=== PATIENT | female | born 1965 | race Caucasian/White ===

== ENCOUNTER 2019-01-24 10:36 | Emergency (ER) | payer OTHER ==
[~2019-01-24] VITALS: Ht 154.9 cm; Wt 99.8 kg
[~2019-01-24 10:36] MED LIST: ALBU90OI INH; AMOX500 PO; BECLOI16.8 IH; BISA5EC PO; CLIN300 PO; CLON.2 PO; Flonase 0.05% N16 GM; HYDACE5 PO; IBUP800 PO; LACT10SY PO; MAGCIT300 PO; NAPR500 PO; OXYACE10; OXYACE5T PO; OXYC15ER PO; OXYC20ER PO; PENVK500 PO; PROM25 PO; SPACE CHAMBER1 EACH MC; Sudogest30 MG PO; TRAM50 PO; TRAZ50; VITAMENS; Zithromax250 MG PO
[2019-01-24] MEDS ORDERED: Amoxicillin500 MG PO (11:05)
== END 2019-01-24 11:18 | disposition home or self-care (01) ==
LOC: ER 10:36
DX: K04.7 Periapical abscess without sinus (principal); Z88.8 Allergy status to other drugs, medicaments and biological substances; Z88.5 Allergy status to narcotic agent; F17.210 Nicotine dependence, cigarettes, uncomplicated
CPT/HCPCS: 99282

== ENCOUNTER 2021-08-14 23:22 | Emergency (ER) | payer OTHER ==
[~2021-08-14] VITALS: Ht 157.5 cm; Wt 84.8 kg
[~2021-08-14 23:22] MED LIST changes: +Amoxicillin500 MG PO
[2021-08-14] MEDS ORDERED: ONDA4ODT SL (23:39)
[2021-08-15 00:50] LABS: BASOPHILS ABSOLUTE AUTO 0.02 K/mm3 (0.00-0.23); BASOPHILS PERCENT AUTO 0 % (0-2); EOSINOPHILS ABSOLUTE AUTO 0.12 K/mm3 (0.00-0.68); EOSINOPHILS PERCENT AUTO 2 % (0-6); Hematocrit 52.9 % (33.0-51.0); Hemoglobin 17.9 g/dL (11.5-16.0); IMMATURE GRAN ABSOLUTE AUTO 0.02 K/mm3 (0.00-0.10); IMMATURE GRAN PERCENT AUTO 0 % (0-1); LYMPHOCYTES ABSOLUTE AUTO 1.23 K/mm3 (0.84-5.20); LYMPHOCYTES PERCENT AUTO 22 % (21-46); MONOCYTES ABSOLUTE AUTO 0.65 K/mm3 (0.16-1.47); MONOCYTES PERCENT AUTO 11 % (4-13); Mean Corpuscular HGB 28.1 pg (26.0-34.0); Mean Corpuscular HGB Conc 33.8 g/dL (31.5-36.5); Mean Corpuscular Volume 83 fL (80-100); Mean Platelet Volume 10.9 fL (9.1-12.4); NEUTROPHILS ABSOLUTE AUTO 3.65 K/mm3 (1.96-9.15); NEUTROPHILS PERCENT AUTO 64 % (41-73); Platelet Count 144 K/mm3 (150-400); RDW Standard Deviation 39.9 fL (35.1-46.3); Red Blood Cell Count 6.36 M/mm3 (3.80-5.20); White Blood Cell Count 5.69 K/mm3 (4.00-11.30)
[2021-08-15 01:39] LABS: Alanine Aminotransfer (ALT/SGP 79 U/L (12-78); Albumin, Blood 3.4 g/dL (3.4-5.0); Albumin/Globulin Ratio 0.9 (0.8-1.8); Alk Phos 101 U/L (50-136); Anion Gap 8 mmol/L (6-16); Aspartate Aminotrans (AST/SGOT 42 U/L (12-37); Bilirubin, Total 0.6 mg/dL (0.1-1.0); Blood Urea Nitrogen 16 mg/dL (8-24); Bun/Creatinine Ratio 18.8 (12.0-20.0); CO2, Blood 28 mmol/L (21-32); Calcium, Blood 9.3 mg/dL (8.5-10.1); Chloride, Blood 100 mmol/L (98-108); Creatinine, Blood 0.85 mg/dL (0.40-1.00); Globulin, Blood 3.9 g/dL (2.2-4.0); Glomerular Filtration Rate >60 (60-); Glucose, Blood 106 mg/dL (70-99); Potassium, Blood 3.8 mmol/L (3.5-5.5); Sodium, Blood 136 mmol/L (136-145); Total Protein, Blood 7.3 g/dL (6.4-8.2); Troponin I <0.015 ng/mL (0.000-0.040)
[2021-08-15] MEDS ORDERED: FAMO20 PO (05:26)
[2021-08-15] MEDS ORDERED: PANT20 PO (05:26)
== END 2021-08-15 06:13 | disposition home or self-care (01) ==
LOC: ER 23:22
PROVIDERS: Emergency Medicine
DX: K29.90 Gastroduodenitis, unspecified, without bleeding (principal); F17.210 Nicotine dependence, cigarettes, uncomplicated; Z88.8 Allergy status to other drugs, medicaments and biological substances; Z88.5 Allergy status to narcotic agent
CPT/HCPCS: 36415; 74177; 76705; 80053; 83690; 84484; 85025; 93005; 93010; 96374; 96375; 99285-25; C9113; J2405; Q9967

== ENCOUNTER → 2021-08-16 | Outpatient (CLI) | payer OTHER ==
[~2021-08-16] MED LIST changes: +FAMO20 PO; +ONDA4ODT SL; +PANT20 PO
[2021-08-16 14:56] LABS: CHOL/HDL RATIO 3.5; Cholesterol 149 mg/dL (50-200); HDL Cholesterol 43 mg/dL (>39); Low Density Lipoprotein Chol 84 mg/dL (0-110); Triglycerides 109 mg/dL (30-160); Very Low Density Lipoprot Chol 21 mg/dL (6-32)
== END | disposition home or self-care (01) ==
LOC: LAB 10:21 → LAB SHORT 10:21
PROVIDERS: Nurse Practitioner
DX: Z11.59 Encounter for screening for other viral diseases (principal); Z13.6 Encounter for screening for cardiovascular disorders; R53.83 Other fatigue
CPT/HCPCS: 80061; 82306; 82607; 82746; 84443; 86803

== ENCOUNTER 2024-10-25 11:04 | Emergency (ER) | payer OTHER ==
[~2024-10-25] VITALS: Ht 154.9 cm; Wt 90.7 kg
[2024-10-25 11:32] VITALS: BP 179/96
[2024-10-25] MEDS ORDERED: Clindamycin HCl 150 MG Cap PO ONE (11:35)
[2024-10-25] MEDS ORDERED: Dexamethasone Sod Phos 10 MG/ML 1ML VIAL PO ONE (11:35)
[2024-10-25] MEDS ORDERED: NAPR500 PO (12:46)
[2024-10-25] MEDS ORDERED: CLIN300 PO (12:46)
== END 2024-10-25 13:21 | disposition home or self-care (01) ==
LOC: ER 11:04
DX: K04.7 Periapical abscess without sinus (principal); L03.211 Cellulitis of face; L03.221 Cellulitis of neck; F17.210 Nicotine dependence, cigarettes, uncomplicated; Z88.1 Allergy status to other antibiotic agents; Z91.041 Radiographic dye allergy status; Z77.120 Contact with and (suspected) exposure to mold (toxic); Z88.5 Allergy status to narcotic agent; Z79.1 Long term (current) use of non-steroidal anti-inflammatories (NSAID); Z79.899 Other long term (current) drug therapy
CPT/HCPCS: 70487; 99283-25; A9270; J1100; Q9967

== ENCOUNTER 2025-03-25 11:15 | Emergency (ER) | payer OTHER ==
[~2025-03-25] VITALS: Ht 154.9 cm; Wt 77.1 kg
[2025-03-25 11:24] VITALS: BP 155/101
[2025-03-25] MEDS ORDERED: LIDO700A20 TOP (14:29)
[2025-03-25] MEDS ORDERED: VALACYCLOVIR1000 MG PO (14:29)
[2025-03-25] MEDS ORDERED: Lidocaine 4% 1 Patch TOP ONE (14:30)
== END 2025-03-25 14:40 | disposition home or self-care (01) ==
LOC: ER 11:15
DX: B02.9 Zoster without complications (principal); F17.200 Nicotine dependence, unspecified, uncomplicated; Z88.5 Allergy status to narcotic agent; Z79.2 Long term (current) use of antibiotics; Z79.899 Other long term (current) drug therapy; Z88.8 Allergy status to other drugs, medicaments and biological substances
CPT/HCPCS: 99282; A9270